=== PATIENT | male | born 1965 | race Two or more races ===

== ENCOUNTER 2020-06-10 16:46 | Emergency (ER) | payer OTHER ==
[~2020-06-10] VITALS: Ht 170.2 cm; Wt 108.9 kg
[2020-06-10 16:55] VITALS: BP 146/92
== END 2020-06-10 18:03 | disposition home or self-care (01) ==
LOC: ER 16:51
DX: M79.601 Pain in right arm (principal); G89.29 Other chronic pain; Z76.0 Encounter for issue of repeat prescription

== ENCOUNTER 2020-06-28 13:25 | Emergency (ER) | payer OTHER ==
[~2020-06-28] VITALS: Ht 170.2 cm; Wt 99.8 kg
[2020-06-28 13:50] VITALS: BP 142/86
== END 2020-06-28 15:31 | disposition home or self-care (01) ==
LOC: ER 13:35
DX: M79.621 Pain in right upper arm (principal); R22.31 Localized swelling, mass and lump, right upper limb; Z90.89 Acquired absence of other organs
CPT/HCPCS: 93971-TC

== ENCOUNTER 2020-07-15 11:35 | Emergency (ER) | payer OTHER ==
[~2020-07-15] VITALS: Ht 170.2 cm; Wt 119.3 kg
[2020-07-15 11:42] VITALS: BP 143/76
--- NOTE | 2020-07-15 12:04 | NUR ---
Patient discharged to home in stable condition. Written and verbal after care instructions given. Patient verbalizes understanding of instruction.
== END 2020-07-15 12:05 | disposition home or self-care (01) ==
LOC: ER 11:40
DX: M79.621 Pain in right upper arm (principal); Z76.0 Encounter for issue of repeat prescription